=== PATIENT | female | born 1950 | race Caucasian/White ===

== ENCOUNTER 2023-05-27 16:15 | Inpatient (IN) | payer BC, MEDICARE ==
[2023-05-27 18:43] LABS: HEMATOCRIT 32.9 % (34.3-46.0); HEMOGLOBIN 11.5 g/dL (11.2-15.5); IMMATURE GRAN PERCENT AUTO 0.4 % (0.0-0.7); LYMPHOCYTES PERCENT AUTO 11.6 % (11.4-47.7); MEAN CORPUSCULAR HEMOGLOBIN 32.1 pg (31.6-35.5); MEAN CORPUSCULAR VOLUME 91.9 fL (81.4-99.0); MONOCYTES ABSOLUTE AUTO 0.33 K/uL (0.20-0.90); MONOCYTES PERCENT AUTO 6.4 % (3.3-12.6); NEUTROPHILS ABSOLUTE AUTO 4.24 K/uL (1.0-7.6); NEUTROPHILS PERCENT AUTO 81.6 % (40.0-78.1); PLATELET COUNT,PLT 115 K/uL (130-375); RED BLOOD CELL COUNT 3.58 M/uL (3.77-5.24); WHITE BLOOD CELL COUNT,WBC 5.2 K/uL (3.2-11.0)
[2023-05-27 18:48] LABS: IMMATURE GRAN ABSOLUTE AUTO 0.02 K/uL (0.00-0.23)
[2023-05-27 19:08] LABS: A/G RATIO 0.9 (1.2-2.2); ALANINE AMINOTRANSFERASE,ALT 36 U/L (12-78); ALBUMIN 3.1 g/dL (3.4-5.0); ALKALINE PHOSPHATASE 63 U/L (46-116); ANION GAP 12.8 mmol/L (5.0-14.0); ASPARTATE AMNIOTRANSFERASE,AST 48 U/L (15-37); BILIRUBIN TOTAL 0.3 mg/dL (0.2-1.0); BLOOD UREA NITROGEN,BUN 18 mg/dL (7-18); CALCIUM 8.2 mg/dL (8.5-10.1); CARBON DIOXIDE,CO2 25 mmol/L (21-32); CHLORIDE,CL 94 mmol/L (100-108); CREATININE 0.8 mg/dL (0.6-1.0); EST CRCL DRUG DOSING (CG) 49.88 mL/min; ESTIMATED GFR 79 mL/min (>60); GLUCOSE RANDOM 95 mg/dL (74-106); POTASSIUM,K 3.8 mmol/L (3.6-5.2); PROTEIN TOTAL,TP 6.4 g/dL (6.4-8.2); SODIUM,NA 128 mmol/L (140-148)
[2023-05-27 19:19] LABS: APPEARANCE,URINE CLEAR (CLEAR); BILIRUBIN,URINE NEGATIVE (NEGATIVE); COLOR,URINE YELLOW (YELLOW); GLUCOSE,URINE NEGATIVE (NEGATIVE); KETONES,URINE TRACE mg/dL (NEGATIVE); LEUKOCYTE ESTERASE,URINE NEGATIVE (NEGATIVE); NITRITE,URINE NEGATIVE (NEGATIVE); OCCULT BLOOD,URINE TRACE-INTACT (NEGATIVE); PH,URINE 5.5 (5.0-8.0); PROTEIN,URINE 100 mg/dL (NEGATIVE); UROBILINOGEN,URINE 0.2 EU/dL (0.2-1.0)
[2023-05-27] MEDS ORDERED: Iopamidol 755 Mg/ML 100 ML Bottle IV SCH (20:00)
[2023-05-27] MEDS ORDERED: Sodium Chloride 0.9% 100 ML IV SCH (20:00)
[2023-05-27] MEDS ORDERED: Enoxaparin 30 MG/0.3 ML Syringe SUBCUT SCH (21:50)
[2023-05-27] MEDS ORDERED: Sennosides/Docusate Sodium 50-8.6 MG Tab PO PRN (21:50)
[2023-05-27] MEDS ORDERED: Acetaminophen 325 MG Tab PO PRN (21:50)
[2023-05-27] MEDS ORDERED: Ondansetron 4 MG/2 ML SDV IV PRN (21:50)
[2023-05-27] MEDS ORDERED: Melatonin 3 MG Tab PO PRN (21:50)
[2023-05-27] MEDS ORDERED: Ondansetron 4 MG Tab.DIS PO PRN (21:50)
[2023-05-27] MEDS ORDERED: Magnesium Hydroxide 400 MG/5 ML Susp 30 ML Cup PO PRN (21:50)
[2023-05-27] MEDS ORDERED: REMDESIVIR 200 MG in Sodium Chloride 0.9% 250 ML IV ONE (21:50)
[2023-05-27] MEDS ORDERED: Enoxaparin 40 MG/0.4 ML Syringe SUBCUT SCH (22:15)
[2023-05-27] MEDS: Dexamethasone 2 MG Tab PO SCH (22:44)
[2023-05-27] MEDS ORDERED: Doxepin 10 MG Cap PO SCH (23:25)
[2023-05-27] MEDS ORDERED: Gabapentin 300 MG Cap PO ONE (23:45)
[2023-05-28] MEDS: ClonazePAM 0.5 MG Tab PO SCH ×3 (00:45→21:33)
[2023-05-28] MEDS: DOXEPIN 10 MG PO SCH ×2 (01:15→21:35)
[2023-05-28] MEDS: Doxycycline 100 MG in Sodium Chloride 0.9% 100 ML IV SCH ×3 (02:13→21:40)
[2023-05-28] MEDS: cefTRIAXone 1 GM in Sodium Chloride 0.9% 50 ML IV SCH ×2 (02:18→23:29)
[2023-05-28 04:51] LABS: HEMATOCRIT 31.5 % (34.3-46.0); HEMOGLOBIN 10.9 g/dL (11.2-15.5); MEAN CORPUSCULAR HEMOGLOBIN 31.9 pg (31.6-35.5); MEAN CORPUSCULAR HGB CONC 34.6 g/dL (31.6-35.5); MEAN CORPUSCULAR VOLUME 92.1 fL (81.4-99.0); RED BLOOD CELL COUNT 3.42 M/uL (3.77-5.24); WHITE BLOOD CELL COUNT,WBC 7.4 K/uL (3.2-11.0)
[2023-05-28 05:14] LABS: A/G RATIO 0.8 (1.2-2.2); ALANINE AMINOTRANSFERASE,ALT 28 U/L (12-78); ALBUMIN 2.7 g/dL (3.4-5.0); ALKALINE PHOSPHATASE 49 U/L (46-116); ASPARTATE AMNIOTRANSFERASE,AST 44 U/L (15-37); BILIRUBIN TOTAL 0.2 mg/dL (0.2-1.0); BLOOD UREA NITROGEN,BUN 11 mg/dL (7-18); CARBON DIOXIDE,CO2 24 mmol/L (21-32); CHLORIDE,CL 96 mmol/L (100-108); CREATININE 0.7 mg/dL (0.6-1.0); EST CRCL DRUG DOSING (CG) 57.69 mL/min; ESTIMATED GFR 92 mL/min (>60); GLUCOSE RANDOM 125 mg/dL (74-106); POTASSIUM,K 3.5 mmol/L (3.6-5.2); SODIUM,NA 130 mmol/L (140-148)
[2023-05-28 05:15] LABS: ANION GAP 13.5 mmol/L (5.0-14.0)
[2023-05-28] MEDS ORDERED: Sodium Chloride 0.9% 1,000 ML IV SCH (05:45)
[2023-05-28] MEDS ORDERED: Potassium Chloride 20 MEQ Tab.ER PO ONE (08:30)
[2023-05-28] MEDS: Dexamethasone 2 MG Tab PO SCH (08:37)
[2023-05-28] MEDS: CYCLOSPORINE EYEBOTH SCH ×2 (08:37→21:33)
[2023-05-28] MEDS: DEXTROAMPHETAMINE PO SCH (08:37)
[2023-05-28] MEDS: AMPHETAMINE PO SCH (08:37)
[2023-05-28] MEDS: Lactobacillus Rhamnosus GG (Probiotic) Cap PO SCH ×2 (08:37→21:32)
[2023-05-28] MEDS: Gabapentin 300 MG Cap PO SCH ×2 (08:45→21:34)
[2023-05-28] MEDS: Enoxaparin 40 MG/0.4 ML Syringe SUBCUT SCH ×2 (10:08→21:35)
[2023-05-28] MEDS: REMDESIVIR 100 MG in Sodium Chloride 0.9% 100 ML IV SCH (21:40)
[2023-05-29 05:25] LABS: A/G RATIO 0.7 (1.2-2.2); ALANINE AMINOTRANSFERASE,ALT 33 U/L (12-78); ALBUMIN 2.3 g/dL (3.4-5.0); ALKALINE PHOSPHATASE 53 U/L (46-116); ASPARTATE AMNIOTRANSFERASE,AST 41 U/L (15-37); BILIRUBIN TOTAL 0.2 mg/dL (0.2-1.0); BLOOD UREA NITROGEN,BUN 21 mg/dL (7-18); CALCIUM 8.2 mg/dL (8.5-10.1); CARBON DIOXIDE,CO2 23 mmol/L (21-32); CHLORIDE,CL 106 mmol/L (100-108); CREATININE 0.6 mg/dL (0.6-1.0); EST CRCL DRUG DOSING (CG) 67.31 mL/min; ESTIMATED GFR 96 mL/min (>60); GLUCOSE RANDOM 150 mg/dL (74-106); POTASSIUM,K 4.2 mmol/L (3.6-5.2); PROTEIN TOTAL,TP 5.5 g/dL (6.4-8.2); SODIUM,NA 136 mmol/L (140-148)
[2023-05-29 05:26] LABS: ANION GAP 11.2 mmol/L (5.0-14.0)
[2023-05-29] MEDS: CYCLOSPORINE EYEBOTH SCH ×2 (08:29→20:15)
[2023-05-29] MEDS: DEXTROAMPHETAMINE PO SCH (09:30)
[2023-05-29] MEDS: AMPHETAMINE PO SCH (09:30)
[2023-05-29] MEDS: Dexamethasone 2 MG Tab PO SCH (09:31)
[2023-05-29] MEDS: ClonazePAM 0.5 MG Tab PO SCH ×2 (09:31→20:22)
[2023-05-29] MEDS: Doxycycline 100 MG in Sodium Chloride 0.9% 100 ML IV SCH ×2 (09:31→23:17)
[2023-05-29] MEDS: Lactobacillus Rhamnosus GG (Probiotic) Cap PO SCH ×2 (09:31→20:24)
[2023-05-29] MEDS: Enoxaparin 40 MG/0.4 ML Syringe SUBCUT SCH ×2 (09:31→22:12)
[2023-05-29] MEDS: Gabapentin 300 MG Cap PO SCH (20:25)
[2023-05-29] MEDS: DOXEPIN 10 MG PO SCH (20:26)
[2023-05-29] MEDS: REMDESIVIR 100 MG in Sodium Chloride 0.9% 100 ML IV SCH (22:12)
[2023-05-30] MEDS: cefTRIAXone 1 GM in Sodium Chloride 0.9% 50 ML IV SCH (00:32)
[2023-05-30 05:46] LABS: A/G RATIO 0.8 (1.2-2.2); ALANINE AMINOTRANSFERASE,ALT 30 U/L (12-78); ALBUMIN 2.4 g/dL (3.4-5.0); ALKALINE PHOSPHATASE 50 U/L (46-116); ASPARTATE AMNIOTRANSFERASE,AST 34 U/L (15-37); BILIRUBIN TOTAL 0.2 mg/dL (0.2-1.0); BLOOD UREA NITROGEN,BUN 23 mg/dL (7-18); CARBON DIOXIDE,CO2 24 mmol/L (21-32); CHLORIDE,CL 106 mmol/L (100-108); CREATININE 0.6 mg/dL (0.6-1.0); EST CRCL DRUG DOSING (CG) 67.31 mL/min; ESTIMATED GFR 96 mL/min (>60); GLUCOSE RANDOM 131 mg/dL (74-106); PROTEIN TOTAL,TP 5.5 g/dL (6.4-8.2); SODIUM,NA 137 mmol/L (140-148)
[2023-05-30] MEDS: CYCLOSPORINE EYEBOTH SCH ×2 (08:22→21:29)
[2023-05-30] MEDS: Dexamethasone 2 MG Tab PO SCH (08:22)
[2023-05-30] MEDS: Lactobacillus Rhamnosus GG (Probiotic) Cap PO SCH ×2 (08:22→21:29)
[2023-05-30] MEDS: AMPHETAMINE PO SCH (08:32)
[2023-05-30] MEDS: ClonazePAM 0.5 MG Tab PO SCH ×2 (08:32→21:26)
[2023-05-30] MEDS: DEXTROAMPHETAMINE PO SCH (08:32)
[2023-05-30] MEDS: Enoxaparin 40 MG/0.4 ML Syringe SUBCUT SCH (09:52)
[2023-05-30] MEDS: Doxycycline 100 MG in Sodium Chloride 0.9% 100 ML IV SCH (10:01)
[2023-05-30] MEDS: Cefdinir 300 MG Cap PO SCH (21:27)
[2023-05-30] MEDS: Doxycycline 100 MG Cap PO SCH (21:27)
[2023-05-30] MEDS: Gabapentin 300 MG Cap PO SCH (21:28)
[2023-05-30] MEDS: DOXEPIN 10 MG PO SCH (21:29)
[2023-05-30] MEDS: REMDESIVIR 100 MG in Sodium Chloride 0.9% 100 ML IV SCH (21:33)
[2023-05-31 05:55] LABS: HEMATOCRIT 28.9 % (34.3-46.0); HEMOGLOBIN 10.1 g/dL (11.2-15.5); MEAN CORPUSCULAR HEMOGLOBIN 32.1 pg (31.6-35.5); MEAN CORPUSCULAR HGB CONC 34.9 g/dL (31.6-35.5); MEAN CORPUSCULAR VOLUME 91.7 fL (81.4-99.0); RED BLOOD CELL COUNT 3.15 M/uL (3.77-5.24); WHITE BLOOD CELL COUNT,WBC 8.2 K/uL (3.2-11.0)
[2023-05-31 06:21] LABS: A/G RATIO 0.8 (1.2-2.2); ALANINE AMINOTRANSFERASE,ALT 45 U/L (12-78); ALBUMIN 2.3 g/dL (3.4-5.0); ALKALINE PHOSPHATASE 46 U/L (46-116); ASPARTATE AMNIOTRANSFERASE,AST 42 U/L (15-37); BILIRUBIN TOTAL 0.2 mg/dL (0.2-1.0); BLOOD UREA NITROGEN,BUN 21 mg/dL (7-18); C-REACTIVE PROTEIN 3.25 mg/dL (<0.50); CALCIUM 8.3 mg/dL (8.5-10.1); CARBON DIOXIDE,CO2 24 mmol/L (21-32); CHLORIDE,CL 104 mmol/L (100-108); CREATININE 0.6 mg/dL (0.6-1.0); EST CRCL DRUG DOSING (CG) 67.31 mL/min; ESTIMATED GFR 96 mL/min (>60); GLUCOSE RANDOM 114 mg/dL (74-106); POTASSIUM,K 3.9 mmol/L (3.6-5.2); PROTEIN TOTAL,TP 5.2 g/dL (6.4-8.2); SODIUM,NA 138 mmol/L (140-148)
[2023-05-31 06:34] LABS: ANION GAP 13.9 mmol/L (5.0-14.0)
[2023-05-31] MEDS: Dexamethasone 2 MG Tab PO SCH (08:27)
[2023-05-31] MEDS: Lactobacillus Rhamnosus GG (Probiotic) Cap PO SCH (08:29)
[2023-05-31] MEDS: CYCLOSPORINE EYEBOTH SCH (08:29)
[2023-05-31] MEDS: Doxycycline 100 MG Cap PO SCH (08:30)
[2023-05-31] MEDS: Cefdinir 300 MG Cap PO SCH (08:31)
[2023-05-31] MEDS: DEXTROAMPHETAMINE PO SCH (08:49)
[2023-05-31] MEDS: ClonazePAM 0.5 MG Tab PO SCH (08:49)
[2023-05-31] MEDS: AMPHETAMINE PO SCH (08:49)
[2023-05-31] MEDS ORDERED: Enoxaparin 40 MG/0.4 ML Syringe SUBCUT SCH (09:00)
== END 2023-05-31 15:13 | disposition home or self-care (01) | DRG 177 ==
LOC: JP.ED 16:15 → JP.ICU 21:05
PROVIDERS: ADMIT Registered Nurse; ATTEND Internal Medicine
PROC: XW033E5 Introduction of Remdesivir Anti-infective into Peripheral Vein, Percutaneous Approach, New Technology Group 5 (ICD-10-PCS; principal; 2023-05-27)
PROC: 3E0333Z Introduction of Anti-inflammatory into Peripheral Vein, Percutaneous Approach (ICD-10-PCS; 2023-05-27)
DX: U07.1 COVID-19 (principal); J12.82 Pneumonia due to coronavirus disease 2019; J15.9 Unspecified bacterial pneumonia; R09.02 Hypoxemia; J96.01 Acute respiratory failure with hypoxia; E87.1 Hypo-osmolality and hyponatremia; F41.9 Anxiety disorder, unspecified; F90.9 Attention-deficit hyperactivity disorder, unspecified type; F32.A Depression, unspecified; G47.00 Insomnia, unspecified; Z99.81 Dependence on supplemental oxygen; Z88.8 Allergy status to other drugs, medicaments and biological substances; Z79.899 Other long term (current) drug therapy
CPT/HCPCS: 36415; 70450; 71045 ×2; 71275; 73080 ×2; 80053; 81003; 84145; 85025; 85379; 86140; 93005; 99285; J3490; Q9967; 85027; 93010; 97161-GP; 99222; 99231; 99232; 99238; A9270-GY; J0696; J1650; J7030; J7050; J8540

== ENCOUNTER 2024-08-29 19:58 | Emergency (ER) | payer MEDICARE ==
[2024-08-29] MEDS: hydrOXYzine HCl 25 MG Tab PO ONE (23:59)
== END 2024-08-30 00:05 | disposition home or self-care (01) ==
LOC: JP.ED 19:58
DX: F32.A Depression, unspecified (principal); G47.00 Insomnia, unspecified; Z88.8 Allergy status to other drugs, medicaments and biological substances; Z79.899 Other long term (current) drug therapy
CPT/HCPCS: 99283; 99284; A9270

== ENCOUNTER 2025-01-18 06:09 | Day surgery (SDC) | payer MEDICARE ==
[2025-01-18] MEDS: Lactated Ringers 1,000 ML IV SCH (06:34)
[2025-01-18] MEDS ORDERED: Propofol 200 MG/20 ML SDV ONE (06:53)
[2025-01-18] MEDS ORDERED: fentaNYL 50 MCG/ML SDV ONE (06:53)
== END 2025-01-18 09:00 | disposition home or self-care (01) ==
LOC: JP.SDS 06:09
PROVIDERS: ATTEND Family Medicine
DX: Z12.11 Encounter for screening for malignant neoplasm of colon (principal)
CPT/HCPCS: G0121; J2704; J3010; J7120